=== PATIENT | female | born 1965 | race American Indian/Alaskan Native ===

== ENCOUNTER 2019-08-05 07:01 | Emergency (ER) | payer MEDICARE, MEDICAID, OTHER ==
[~2019-08-05] VITALS: Ht 160 cm; Wt 86.8 kg
[~2019-08-05 07:01] MED LIST: ALBU18HF2 IH; CYCL-394 PO; ESOM40CA PO; HYDR-4383 PO; LORA1TAB PO; ZOF4T PO; [UNRECOGNIZED DRUG - CODE] PO
[2019-08-05 07:18] VITALS: BP 98/66
[2019-08-05] MEDS ORDERED: ALBU8HFA PO (08:46)
[2019-08-05] MEDS ORDERED: ROBCFL PO (08:46)
[2019-08-05] MEDS ORDERED: BENZ-16 PO (08:46)
[2019-08-05] MEDS ORDERED: CETI10TA15 PO (08:46)
== END 2019-08-05 09:08 | disposition home or self-care (01) ==
LOC: ER 07:01
DX: R05 Cough (principal); H92.03 Otalgia, bilateral; R51 Headache; K21.9 Gastro-esophageal reflux disease without esophagitis; E11.9 Type 2 diabetes mellitus without complications; F41.9 Anxiety disorder, unspecified; F15.10 Other stimulant abuse, uncomplicated; Z72.89 Other problems related to lifestyle; Z56.0 Unemployment, unspecified; Z79.899 Other long term (current) drug therapy
CPT/HCPCS: 99283

== ENCOUNTER 2021-12-03 18:25 | Emergency (ER) | payer MEDICARE, MEDICAID ==
[~2021-12-03] VITALS: Ht 160 cm; Wt 90.9 kg
[~2021-12-03 18:25] MED LIST changes: +CETI10TA15 PO
[2021-12-03 21:49] LABS: BASOPHILS # (AUTO) 0.1 X10'3 (0-0.2); BASOPHILS % (AUTO) 0.5 % (0-1); EOSINOPHILS # (AUTO) 0.2 X10'3 (0-0.9); EOSINOPHILS % (AUTO) 1.2 % (0-6); HEMATOCRIT 35.5 % (35.0-45.0); HEMOGLOBIN 11.6 g/dl (12.0-16.0); LYMPHOCYTES # (AUTO) 3.3 X10'3 (1.1-4.8); LYMPHOCYTES % (AUTO) 20.1 % (21-51); MEAN CORPUSCULAR HEMOGLOBIN 27.7 PG (27.0-31.0); MEAN CORPUSCULAR HGB CONC 32.9 g/dL (33.0-36.5); MEAN CORPUSCULAR VOLUME 84.4 FL (78-98); MONOCYTES % (AUTO) 5.9 % (2-12); NEUTROPHILS # (AUTO) 11.8 X10'3 (1.8-7.7); NEUTROPHILS % (AUTO) 72.3 % (42-75); PLATELET COUNT 478 X10'3 (140-440); RED CELL DISTRIBUTION WIDTH 13.6 % (11.5-14.5); WHITE BLOOD COUNT 16.3 X10'3 (4.5-11.0)
[2021-12-03 22:04] LABS: ALANINE AMINOTRANSFERASE 30 U/L (12-78); ALBUMIN 3.2 G/DL (3.4-5.0); ALBUMIN/GLOBULIN RATIO 0.8 (1.1-1.5); ALKALINE PHOSPHATASE 91 IU/L (46-116); ANION GAP 12 (8-16); ASPARTATE AMINO TRANSFERASE 15 U/L (10-37); BILIRUBIN,TOTAL 0.2 MG/DL (0.1-1.0); BLOOD UREA NITROGEN 9 MG/DL (7-18); BUN/CREATININE RATIO 11.4 (6.6-38.0); CHLORIDE 103 MMOL/L (99-107); CREATINE KINASE 103 U/L (26-192); CREATININE 0.79 MG/DL (0.40-0.90); GLUCOSE 114 MG/DL (70-104); POTASSIUM 3.3 MMOL/L (3.5-5.1); SODIUM 140 MMOL/L (135-145); TOTAL CARBON DIOXIDE 24.6 MMOL/L (24-32); TOTAL PROTEIN 7.4 G/DL (6.4-8.2); eGFR 76 ML/MIN
[2021-12-04] MEDS ORDERED: ibuprofen tablet 400 MG TABLET PO ONE (00:40)
[2021-12-04] MEDS ORDERED: acetaminophen 325mg tablet PO ONE (00:40)
[2021-12-04 01:16] LABS: CLARITY,URINE CLEAR (Clear); COLOR,URINE YELLOW (Yellow); GLUCOSE, URINE NEGATIVE (Neg); KETONES,URINE NEGATIVE (Neg); LEUKOCYTE ESTERASE ,URINE NEGATIVE (Neg); NITRITES, URINE NEGATIVE (Neg); OCCULT BLOOD,URINE TRACE-INTACT (Neg); PH,URINE 5.5 (4.8-8.0); PROTEIN,URINE NEGATIVE (Neg); UROBILINOGEN,URINE 0.2 E.U/dL (0.2-1.0)
[2021-12-04 01:20] LABS: UA COLLECTION TYPE CLN CATCH MIDSTREAM
[2021-12-04 01:27] LABS: BACTERIA,URINE NONE SEEN /HPF (Neg); RBC,URINE 0-2 /HPF (0-2); SQUAMOUS EPITHELIAL CELL,UR NONE SEEN /LPF (FEW); URIC ACID CRYSTALS FEW /HPF (NEGATIVE); WBC,URINE NONE SEEN /HPF (0-4)
[2021-12-04 01:34] VITALS: BP 118/87
== END 2021-12-04 01:36 | disposition home or self-care (01) ==
LOC: ER 18:25
DX: M79.632 Pain in left forearm (principal); M79.631 Pain in right forearm; M79.651 Pain in right thigh; M79.652 Pain in left thigh; G89.29 Other chronic pain; K21.9 Gastro-esophageal reflux disease without esophagitis; E11.9 Type 2 diabetes mellitus without complications; F15.90 Other stimulant use, unspecified, uncomplicated; Z72.89 Other problems related to lifestyle; Z56.0 Unemployment, unspecified; Z79.899 Other long term (current) drug therapy
CPT/HCPCS: 36415; 80053; 81001; 82550; 84145; 85025; 99283